=== PATIENT | female | born 1975 | race Two or more races ===

== ENCOUNTER 2019-05-19 00:07 | Emergency (ER) | payer OTHER ==
[~2019-05-19] VITALS: Ht 157.5 cm; Wt 54.4 kg
[2019-05-19 00:15] VITALS: BP 130/76
--- NOTE | 2019-05-19 00:15 | NUR ---
Note mily in EDM - 05/19/19 at 0106 by NATALIE ED Nurse Note: patient walked into ED c/o dizziness accompanied by lower abdominal pain, patient reports of having 2 episodes of vomit prior to arriving here. at time of arrival patient had 1 episode of vomit. patient is alert and oriented x4. has a history of vertigo.
--- NOTE | 2019-05-19 00:16 | NUR ---
ED Nurse Note: patient walked into ED c/o dizziness accompanied by frontal headache, patient reports of having 2 episodes of vomit prior to arriving here. at time of arrival patient had 1 episode of vomit. patient is alert and oriented x4. has a history of vertigo.
[2019-05-19] MEDS ORDERED: DiphenhydrAMINE 50mg/ml Inj IVP ONE (00:30)
[2019-05-19] MEDS ORDERED: Metoclopramide 10mg/2ml Inj IVP ONE (00:30)
[2019-05-19] MEDS ORDERED: Ketorolac 30mg Inj IV ONE (00:30)
--- NOTE | 2019-05-19 00:33 | Emergency Room Report ---
History of Present Illness General Chief Complaint: Dizziness Source: Patient Present Illness HPI Is a 44-year-old female with a history of headache. She presents with chief complaint of a migraine headache. Onset today. Throbbing in nature. No nausea and vomiting and dizzy. Pain is 10 out of 10. Is worse than his usual pain. Worse with lights. Better with DrPaddy shanks. Gradual onset. No focal deficit. No relief with [id number] medication. Allergies: Coded Allergies: No Known Allergies (Unverified , 05/19/19) Patient History Past Medical History: see triage record, old chart reviewed Past Surgical History: none Pertinent Family History: none Social History: Denies: smoking Last Menstrual Period: 05/03/19 Now: No Immunizations: other Reviewed Nursing Documentation: PMH: Agreed; PSxH: Agreed Nursing Documentation-PMH Past Medical History: No History, Except For Review of Systems Eye: Denies: eye pain, blurred vision ENT: Denies: ear pain, nose congestion, throat swelling Respiratory: Denies: cough, shortness of breath Cardiovascular: Denies: chest pain, palpitations Gastrointestinal: Denies: abdominal pain, diarrhea, nausea, vomiting Musculoskeletal: Denies: back pain, joint pain Skin: Denies: rash Neurological: Reports: headache; Denies: numbness Endocrine: Denies: increased thirst, increased urine Hematologic/Lymphatic: Denies: easy bruising All Other Systems: negative except mentioned in HPI Physical Exam Vital Signs Date Time Temp Pulse Resp B/P (MAP) Pulse Ox O2 Delivery O2 Flow Rate FiO2 05/19/19 00:11 97.7 72 30 130/76 (94) 98 Room Air Vitals normal Sp02 EP Interpretation: reviewed, normal General Appearance: well appearing, no apparent distress, alert Head: normocephalic, atraumatic Eyes: bilateral eye PERRL, bilateral eye EOMI ENT: hearing grossly normal, normal pharynx Neck: full range of motion, supple, no meningismus Respiratory: chest non-tender, lungs clear, normal breath sounds Cardiovascular #1: regular rate, rhythm, no murmur Gastrointestinal: normal bowel sounds, non tender, no mass, no organomegaly, no bruit, non-distended Musculoskeletal: back normal, gait/station normal, normal range of motion Psychiatric: mood/affect normal Medical Decision Making Diagnostic Impression: Primary Impression: Migraine Qualified Codes: G43.909 - Migraine, unspecified, not intractable, without status migrainosus ER Course This is a 44-year-old female presented with headache. This is typical for migraine but worse in severity. No focal deficit to indicate TIA or CVA. No evidence of meningitis. Unlikely to be a bleed. Patient improved after medication. Last Vital Signs Date Time Temp Pulse Resp B/P (MAP) Pulse Ox O2 Delivery O2 Flow Rate FiO2 05/19/19 00:11 97.7 72 30 130/76 (94) 98 Room Air Status: improved Disposition: HOME, SELF-CARE Condition: Stable Scripts Hydrocodone/Acetaminophen 5-325* (HYDROCODONE/ACETAMINOPHEN 5-325*) 1 Each Tablet 1 TAB ORAL Q6H PRN for For Pain, #10 TAB 0 Refills Prov: Bj Oswald MD 05/19/19 Additional Instructions: Follow-up with your doctor in 7 days. Return if symptoms worsen. Bj Oswald MD May 19, 2019 00:33
[2019-05-19] MEDS ORDERED: HYDROCODON-ACE1 EA15 ORAL (01:03)
[2019-05-19 01:35] VITALS: BP 124/70
--- NOTE | 2019-05-19 01:35 | NUR ---
ER DISCHARGE NOTE: Patient is cleared to be discharged per ERMD, pt is aox4, on room air, with stable vital signs. pt was given dc and prescription instructions, pt was able to verbalize understanding, pt id band and iv site removed without complications. pt is able to ambulate with steady gait. pt took all belongings.
== END 2019-05-19 01:36 | disposition home or self-care (01) ==
LOC: EMR 00:31
DX: G43.909 Migraine, unspecified, not intractable, without status migrainosus (principal)
CPT/HCPCS: 96361; 96374; 96375; 99285; J1200; J1885; J2765